=== PATIENT | male | born 1995 | race Two or more races ===

== ENCOUNTER 2016-05-24 16:33 | Emergency (ER) | payer MEDICAID ==
[~2016-05-24] VITALS: Ht 180.3 cm; Wt 61.2 kg
[~2016-05-24 16:33] MED LIST: AEROCHAMBER1 DEV IH; ALBUTEROL2 PUFFS/17 IN; BACTRIM DS 8001 TA1 PO; KEFLEX 500MG.500 MG PO; NOMEDS *; ZITHROMAX Z PA250 MG PO
[2016-05-24 17:35] VITALS: BP 122/69
--- NOTE | 2016-05-24 17:40 | Emergency Room Report ---
History of Present Illness Time Seen by [id number] Presenting Problem in Triage Pt arrived:Walked Presenting Problem:c/o runny nose, N/V/D x 2 days. 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 N Clinical Suspician of Infection? N Mental Status: 1 - Regular (Normal Baseline) Sepsis Risk:Low Sepsis Risk Have you (or family members/close friends) recently traveled outside the [place]? N If Yes, where/when: Have you had exposure to infectious disease within the past month? N TB? Other? Specify: Comment The patient says that he started getting ill this morning. He has a runny nose and a mild cough. His morning he felt like he could not get a deep enough breath. He is had one episode of vomiting and 2 episodes of diarrhea. The last diarrhea was about 3 hours ago. No abdominal pain or chest pain. He has not felt feverish. Cough is nonproductive. He requests a work note for today. His next 8 of work is Monday 4 days from now. ALLERGIES Coded Allergies: No Known Allergies (05/24/16) Home Medications Reported Medications No Known Home Medications History Medical History General CAD? No Angina: No LA: No Hypertension? No Hyperlipidemia? No CHF? No DVT? No PE? No COPD? No Asthma? Yes Anemia? No GERD? No Gastric ulcers? No GI Bleed? No Hernia? No Thyroid Problems? No Hypothyroidism? No CVA? No Seizures? No Diabetes? No Renal Insuffiency? No End Stage Renal Disease? No UTI? No Stones? No GB Disease: No Nephritic Syndrome? No Asplenia? No Hepatitis? No Sickle Cell Disease? No Arthritis? No Migraines? No Cataracts? No Glaucoma? No MRSA? No HIV? No TB? No Anxiety? No Depression? No Cancer? No Immunization Hx DT/Tetanus 1-4 YRS Surgical Hx Previous Surgery?N Social History Smoking Hx Smoker: Current Every Day Smoker Tobacco: Yes Type Cigarettes Packs/day < 1 Pack Alcohol Alcohol: No Review of Systems All Other Systems Reviewed and Negative Constitutional denies fever ENT nose discharge. Respiratory cough, shortness of breath Gastrointestinal denies abdominal pain, diarrhea, vomiting Physical Exam Vital Signs Vital Signs Date Time Temp Pulse Resp B/P Pulse O2 O2 Flow FiO2 Ox Delivery Rate 05/24 1735 98.5 56 16 122/69 99 General Appearance normal appearance, WD/WN Eye Exam - bilateral eye normal exam, bilateral eye PERRL, bilateral eye EOMI Ear, Nose, Throat hearing grossly normal, normal ENT inspection Neck normal inspection, non-tender, supple, full range of motion Respiratory Status Yes: trachea midline, chest symmetrical, non tender chest. No: respiratory distress. Lung Sounds bilateral: normal breath sounds, lungs clear. 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 No Departure Departure Disposition DC Home or Self Care(routine) Clinical Impression Primary Impression: Viral syndrome Condition STABLE Referrals Rosalva PLTAT,Harshad Sawyer (PCP) Patient Instructions DI for Viral Syndrome Additional Instructions Off work today, 05/24/16. May return to work next scheduled shift. Prescriptions Current Visit Scripts Ondansetron (Zofran 4MG Odt) 4 MG PO Q8HP PRN NAUSEA AND VOMITING #10 ODT Loperamide Hcl (Loperamide) 2 MG PO Q6HP PRN DIARRHEA #10 CAP ED Critical Care Critical Care No at [id number]
--- NOTE | 2016-05-24 17:40 | Emergency Room Report ---
History of Present Illness Time Seen by [id number] Presenting Problem in Triage Pt arrived:Walked Presenting Problem:c/o runny nose, N/V/D x 2 days. 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 N Clinical Suspician of Infection? N Mental Status: 1 - Regular (Normal Baseline) Sepsis Risk:Low Sepsis Risk Have you (or family members/close friends) recently traveled outside the [place]? N If Yes, where/when: Have you had exposure to infectious disease within the past month? N TB? Other? Specify: Comment The patient says that he started getting ill this morning. He has a runny nose and a mild cough. His morning he felt like he could not get a deep enough breath. He is had one episode of vomiting and 2 episodes of diarrhea. The last diarrhea was about 3 hours ago. No abdominal pain or chest pain. He has not felt feverish. Cough is nonproductive. He requests a work note for today. His next 8 of work is Monday 4 days from now. ALLERGIES Coded Allergies: No Known Allergies (05/24/16) Home Medications Reported Medications No Known Home Medications History Medical History General CAD? No Angina: No MD: No Hypertension? No Hyperlipidemia? No CHF? No DVT? No PE? No COPD? No Asthma? Yes Anemia? No GERD? No Gastric ulcers? No GI Bleed? No Hernia? No Thyroid Problems? No Hypothyroidism? No CVA? No Seizures? No Diabetes? No Renal Insuffiency? No End Stage Renal Disease? No UTI? No Stones? No GB Disease: No Nephritic Syndrome? No Asplenia? No Hepatitis? No Sickle Cell Disease? No Arthritis? No Migraines? No Cataracts? No Glaucoma? No MRSA? No HIV? No TB? No Anxiety? No Depression? No Cancer? No Immunization Hx DT/Tetanus 1-4 YRS Surgical Hx Previous Surgery?N Social History Smoking Hx Smoker: Current Every Day Smoker Tobacco: Yes Type Cigarettes Packs/day < 1 Pack Alcohol Alcohol: No Review of Systems All Other Systems Reviewed and Negative Constitutional denies fever ENT nose discharge. Respiratory cough, shortness of breath Gastrointestinal denies abdominal pain, diarrhea, vomiting Physical Exam Vital Signs Vital Signs Date Time Temp Pulse Resp B/P Pulse O2 O2 Flow FiO2 Ox Delivery Rate 05/24 1735 98.5 56 16 122/69 99 General Appearance normal appearance, WD/WN Eye Exam - bilateral eye normal exam, bilateral eye PERRL, bilateral eye EOMI Ear, Nose, Throat hearing grossly normal, normal ENT inspection Neck normal inspection, non-tender, supple, full range of motion Respiratory Status Yes: trachea midline, chest symmetrical, non tender chest. No: respiratory distress. Lung Sounds bilateral: normal breath sounds, lungs clear. 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 No Departure Departure Disposition DC Home or Self Care(routine) Clinical Impression Primary Impression: Viral syndrome Condition STABLE Referrals Rosalva PLATT,Harshad Swayer (PCP) Patient Instructions DI for Viral Syndrome Additional Instructions Off work today, 05/24/16. May return to work next scheduled shift. Prescriptions Current Visit Scripts Ondansetron (Zofran 4MG Odt) 4 MG PO Q8HP PRN NAUSEA AND VOMITING #10 ODT Loperamide Hcl (Loperamide) 2 MG PO Q6HP PRN DIARRHEA #10 CAP ED Critical Care Critical Care No at [id number]
[2016-05-24] MEDS ORDERED: IMODIUM 2MG. CAP2 MG PO (17:59)
[2016-05-24] MEDS ORDERED: ZOFRAN ODT4 MG PO (17:59)
== END 2016-05-24 18:03 | disposition home or self-care (01) ==
LOC: ER 16:33
DX: B34.9 Viral infection, unspecified (principal); Z72.0 Tobacco use